=== PATIENT | male | born 1955 | race Caucasian/White ===

== ENCOUNTER 2017-12-11 16:57 | Emergency (ER) | payer MEDICAID, OTHER ==
[~2017-12-11] VITALS: Ht 175.3 cm; Wt 97.0 kg
[2017-12-11] MEDS ORDERED: ASPIRIN 81MG TABLET PO ONE (19:00)
[2017-12-11] MEDS ORDERED: NITROGLYCERIN 0.4MG TABLET SL SL PRN (19:00)
[2017-12-11 19:51] LABS: EOSINOPHILS % 13.1 % (0.0-5.0); HEMATOCRIT. 39.6 % (42.0-52.0); HEMOGLOBIN. 13.8 g/dL (14.0-18.0); LYMPHOCYTES % 19.9 % (20.0-50.0); MEAN CORPUSCULAR VOLUME 100.6 fL (80.0-94.0); MONOCYTES % 8.1 % (2.0-8.0); NEUTROPHILS % 57.9 % (40.0-76.0); PLATELET 233 x1000/uL (130-400); RED BLOOD CELL COUNT 3.93 mill/uL (4.7-6.1); RED CELL DISTRIBUTION WIDTH 15.6 % (11.6-14.6)
[2017-12-11 19:53] LABS: PROTHROMBIN TIME 10.9 sec (9.4-11.6)
[2017-12-11 19:56] LABS: CHLORIDE 99 mEq/L (98-107)
[2017-12-11 20:05] LABS: ETHANOL BLOOD 62 mg/dL
[2017-12-12 01:28] VITALS: BP 130/80
== END 2017-12-12 01:31 | disposition home or self-care (01) ==
LOC: ER 17:24
DX: R07.89 Other chest pain (principal); G40.909 Epilepsy, unspecified, not intractable, without status epilepticus; I25.2 Old myocardial infarction; F17.200 Nicotine dependence, unspecified, uncomplicated; F99 Mental disorder, not otherwise specified; Z86.73 Personal history of transient ischemic attack (TIA), and cerebral infarction without residual deficits
CPT/HCPCS: 36415; 71045; 80053; 83880; 84484; 85025; 85610; 93005; 99285; G0482; Z7610

== ENCOUNTER 2018-08-29 17:09 | Inpatient (IN) | payer OTHER ==
[~2018-08-29] VITALS: Ht 175.3 cm; Wt 85.5 kg
[2018-08-29] MEDS: MVI, ADULT NO.1 10 ML, FOLIC ACID 1 MG, THIAMINE HCL 100 MG in SODIUM CHLORIDE 0.9% 1,0... IV NR ×4 (00:10)
[2018-08-29] MEDS ORDERED: NITR0.4T49 SL (17:26)
[2018-08-29] MEDS ORDERED: PHEN100C4 PO (17:26)
[2018-08-29] MEDS ORDERED: ASPIRIN 81MG TABLET PO ONE (18:00)
[2018-08-29] MEDS ORDERED: SODIUM CHLORIDE 0.9% 1,000 ML IV ONE ×2 (18:50)
[2018-08-29 19:19] LABS: BASOPHILS % 0.9 % (0.0-2.0); EOSINOPHILS % 3.5 % (0.0-5.0); HEMATOCRIT. 36.3 % (42.0-52.0); LYMPHOCYTES % 29.1 % (20.0-50.0); MEAN CORPUSCULAR HEMOGLOBIN 33.8 pg (28.0-32.0); MEAN CORPUSCULAR VOLUME 102.4 fL (80.0-94.0); MEAN PLATELET VOLUME 8.3 fl (7.4-10.4); MONOCYTES % 13.1 % (2.0-8.0); NEUTROPHILS % 53.4 % (40.0-76.0); PLATELET 132 x1000/uL (130-400); RED BLOOD CELL COUNT 3.55 mill/uL (4.7-6.1); RED CELL DISTRIBUTION WIDTH 15.7 % (11.6-14.6)
[2018-08-29 19:26] LABS: CHLORIDE 106 mEq/L (98-107)
[2018-08-29 19:27] LABS: PARTIAL THROMBOPLASTIN TIME 26.4 sec (23.4-31.0)
[2018-08-29 19:33] LABS: ETHANOL BLOOD 202 mg/dL
[2018-08-29] MEDS ORDERED: LEVETIRACETAM 1000MG/100ML 100 ML IV ONE (20:15)
[2018-08-29] MEDS ORDERED: LEVOFLOXACIN 500MG PREMIX 100 ML IV ONE (21:00)
[2018-08-29] MEDS ORDERED: LEVETIRACETAM 1,000 MG in SODIUM CHLORIDE 0.9% 100 ML IV NR (21:00)
[2018-08-29] MEDS ORDERED: DEXTROSE 50% WATER 50ML SYRINGE IV ONE (21:30)
[2018-08-29] MEDS ORDERED: HYDROCODONE/ACETAMINOPHEN 5/325MG TABLET PO PRN (21:45)
[2018-08-29] MEDS ORDERED: CLONIDINE 0.1MG TABLET PO PRN (21:45)
[2018-08-29] MEDS ORDERED: ONDANSETRON HCL 4MG/2ML INJ IV PRN (21:45)
[2018-08-29] MEDS ORDERED: IPRATROPIUM/ALBUTEROL 0.5-3(2.5)MG/3ML NEB INH PRN (21:45)
[2018-08-29] MEDS ORDERED: MAGNESIUM/ALUMINUM HYDROXIDE/SIMETHICONE 30ML UDC PO PRN (21:45)
[2018-08-29] MEDS ORDERED: ACETAMINOPHEN 325MG TABLET PO PRN (21:45)
[2018-08-29 22:11] LABS: CLARITY URINE CLEAR (CLEAR); COLOR URINE YELLOW (YELLOW); KETONES URINE NEGATIVE (NEGATIVE); LEUKOCYTE ESTERASE URINE NEGATIVE (NEGATIVE); NITRITE URINE NEGATIVE (NEGATIVE); OCCULT BLOOD URINE NEGATIVE (NEGATIVE); PROTEIN URINE NEGATIVE (NEGATIVE); SPECIFIC GRAVITY URINE 1.004 (1.005-1.030); UROBILINOGEN URINE 0.2 E.U./dL (0.2-1.0)
[2018-08-29 22:27] LABS: *BARBITURATES SCREEN URINE NEGATIVE (NEGATIVE); *COCAINE SCREEN URINE NEGATIVE (NEGATIVE)
[2018-08-29 22:28] LABS: *BENZODIAZEPINES SCREEN URINE PRESUMTIVE POSITIVE (NEGATIVE); CANNABINOID URINE SCREEN NEGATIVE (NEGATIVE); METHADONE URINE SCREEN NEGATIVE (NEGATIVE); OPIATES URINE SCREEN NEGATIVE (NEGATIVE); PHENCYCLIDINE URINE SCREEN NEGATIVE (NEGATIVE)
[2018-08-29 22:29] LABS: *AMPHETAMINES SCREEN URINE NEGATIVE (NEGATIVE)
[2018-08-29] MEDS: CHLORDIAZEPOXIDE 25MG CAPSULE PO SCH (23:15)
[2018-08-29 23:26] LABS: CHLORIDE 111 mEq/L (98-107)
[2018-08-29 23:34] LABS: CREATINE KINASE 60 IU/L (39-308)
[2018-08-29 23:36] LABS: CREATINE KINASE MB FRACTION 2.5 ng/mL (0.5-3.6)
[2018-08-30] MEDS: MVI, ADULT NO.1 10 ML, FOLIC ACID 1 MG, THIAMINE HCL 100 MG in SODIUM CHLORIDE 0.9% 1,0... IV NR ×4 (01:02)
[2018-08-30 05:42] LABS: BASOPHILS % 0.8 % (0.0-2.0); HEMATOCRIT. 35.8 % (42.0-52.0); HEMOGLOBIN. 12.1 g/dL (14.0-18.0); LYMPHOCYTES % 24.3 % (20.0-50.0); MEAN CORPUSCULAR HEMOGLOBIN 34.3 pg (28.0-32.0); MEAN CORPUSCULAR VOLUME 101.4 fL (80.0-94.0); MONOCYTES % 11.8 % (2.0-8.0); NEUTROPHILS % 57.1 % (40.0-76.0); PLATELET 144 x1000/uL (130-400); RED BLOOD CELL COUNT 3.53 mill/uL (4.7-6.1); RED CELL DISTRIBUTION WIDTH 15.4 % (11.6-14.6)
[2018-08-30 05:50] LABS: LDL CHOLESTEROL 63 mg/dL (5-100)
[2018-08-30 05:52] LABS: CREATINE KINASE 58 IU/L (39-308); HDL CHOLESTEROL 51 mg/dL (40-59)
[2018-08-30 05:54] LABS: CREATINE KINASE MB FRACTION 2.1 ng/mL (0.5-3.6)
[2018-08-30] MEDS: CHLORDIAZEPOXIDE 25MG CAPSULE PO SCH ×3 (08:11→21:22)
[2018-08-30 08:30] VITALS: BP 118/82
[2018-08-30] MEDS ORDERED: ASPIRIN 81MG EC TABLET PO SCH (09:00)
[2018-08-30] MEDS ORDERED: FOLIC ACID 1MG TABLET PO SCH (09:00)
[2018-08-30] MEDS ORDERED: MULTIVITAMINS,THER W-MINERALS TABLET PO SCH (09:00)
[2018-08-30] MEDS ORDERED: THIAMINE HCL 100MG TABLET PO SCH (09:00)
[2018-08-30] MEDS ORDERED: DEXTROSE 50% WATER 50ML SYRINGE IV PRN (09:30)
[2018-08-30 11:17] VITALS: BP 118/82
[2018-08-30 12:00] VITALS: BP 96/53
[2018-08-30] MEDS ORDERED: LEVOFLOXACIN 750MG PREMIX 150 ML IV SCH ×2 (12:00→17:00)
[2018-08-30] MEDS: INSULIN LISPRO 100 UNITS/ML SUBCUT SCH ×3 (12:34→20:33)
[2018-08-30] MEDS: BLOOD SUGAR DIAGNOSTIC STRIP TEST SCH ×3 (12:34→20:32)
[2018-08-30 20:00] VITALS: BP 106/61
[2018-08-30 20:53] VITALS: BP 106/61
[2018-08-30 21:38] VITALS: BP 106/61
== END 2018-08-31 00:05 | disposition short-term general hospital (02) | DRG 203 ==
LOC: ER 17:09 → 7WST 20:22 → EDBEDREQ 20:24 → EDBEDREQTM 20:24 → ENRESERV 08-30 07:05
PROVIDERS: ADMIT Internal Medicine; ATTEND Internal Medicine
DX: M94.0 Chondrocostal junction syndrome [Tietze] (principal); E43 Unspecified severe protein-calorie malnutrition; I95.9 Hypotension, unspecified; J18.1 Lobar pneumonia, unspecified organism; D64.9 Anemia, unspecified; R07.89 Other chest pain; J44.0 Chronic obstructive pulmonary disease with (acute) lower respiratory infection; I25.10 Atherosclerotic heart disease of native coronary artery without angina pectoris; F17.210 Nicotine dependence, cigarettes, uncomplicated; F32.9 Major depressive disorder, single episode, unspecified; R26.2 Difficulty in walking, not elsewhere classified; E87.6 Hypokalemia; G40.909 Epilepsy, unspecified, not intractable, without status epilepticus; F10.20 Alcohol dependence, uncomplicated; I10 Essential (primary) hypertension; Y90.7 Blood alcohol level of 200-239 mg/100 ml; Z91.19 Patient's noncompliance with other medical treatment and regimen; I25.2 Old myocardial infarction; Z79.899 Other long term (current) drug therapy; Z68.27 Body mass index [BMI] 27.0-27.9, adult
CPT/HCPCS: 36415; 71045; 80048; 80061; 80185; 80305; 82550; 82553; 82962; 83735; 83880; 84443; 84484; 93005; 93306; 93970; 96365; 99291; G0482; J1953; J1956; J3411; J3490; J7030; J7050